=== PATIENT | male | born 1975 | race Caucasian/White ===

== ENCOUNTER 2020-08-31 10:16 | Emergency (ER) | payer SELFPAY ==
[2020-08-31 10:22] VITALS: BP 134/96; PULSE 67; RESP 16; TEMP 36.4; O2SAT 100
--- NOTE | 2020-08-31 10:30 | DI.RAD_ITS ---
Exam(s) XR FOOT LT COMPLETE EXAM: XR FOOT LT COMPLETE CLINICAL HISTORY: crush injury. TECHNIQUE: 2D digital imaging was performed. COMPARISON: No exams were available for comparison FINDINGS: BONES: No acute fracture is present. No bony destructive lesion is seen. Small heel spur. JOINTS: No dislocation present. SOFT TISSUE: Swelling around ankle. IMPRESSION: Unremarkable radiographs of the left foot. DATA REPOSITORY: RADIATION DOSE DELIVERED:
--- NOTE | 2020-08-31 10:30 | DI.RAD_ITS ---
Exam(s) XR ANKLE LT COMPLETE EXAM: XR ANKLE LT COMPLETE CLINICAL HISTORY: crush injury TECHNIQUE: 2D digital imaging was performed. COMPARISON: No exams were available for comparison FINDINGS: BONES: No acute fracture is present. No bony destructive lesion is seen. JOINTS:The ankle mortise is normally aligned. SOFT TISSUE: Lateral soft tissue swelling IMPRESSION: Lateral soft tissue swelling. DATA REPOSITORY: RADIATION DOSE DELIVERED:
--- NOTE | 2020-08-31 11:00 | ED.GENADUL_ITS ---
Discharge Plan Disposition Patient Disposition: HOME Condition: Stable Discharge Details Clinical Impression: Contusion of foot Primary Care Provider: Beltran Prakash ED Provider: Edwin Hayden Home Meds and New Rx's Prescriptions: No Action No Known Home Meds RF: 0 Discharge Instructions Instructions: Foot Contusion (ED) Additional Instructions: [id number] Tylenol and/or Motrin as directed for discomfort. Rest, elevate, cool compresses every 2 hours for 20 minutes. Wound care as we discussed. Please watch for new or worsening symptoms and return to the ER for any concerns. If you are not improving with conservative measures over the next 7-10 days, I recommend following up with orthopedics. Medical Decision Making 45-year-old gentleman presenting for a left foot and ankle injury status post dropping a heavy countertop on his leg yesterday. Reports mild pain across the entire area and an altered sensation across the medial and dorsal aspect of the foot. Patient does have a wound which appears to be healing well. Tetanus status is not up-to-date, will update tetanus status today. Will obtain x-ray of his foot and ankle. Patient declined splinting or crutches. Wound was cleaned and dressed appropriately. X-ray of foot and ankle read by radiology, left foot unremarkable, left ankle r eveals lateral soft tissue swelling. Discussed benign x-rays with patient. The patient had direct blunt trauma-crush injury to his foot-ankle. No evidence of any compartment syndrome, bony abnormality, pain at the proportion to examination. Local altered sensation likely secondary to injury. Discussed importance of resting, elevating, cool compresses, [id number] anti- inflammatories. We also discussed watching for signs of secondary infection from his superficial wound. Patient is comfortable with this plan and has no additional questions or concerns. If he feels as though his symptoms are lingering after a week or so with conservative measures, his plan is to return to orthopedics for further evaluation. He was encouraged to return to the ER for new or worsening symptoms. Standard discharge and return precautions given. Patient has no additional questions or concerns. Medical Records Medical records reviewed: Yes I reviewed the patient's medical records. Imaging Data Radiologic Study: Attestation: I personally reviewed and interpreted this imaging study as follows: Imaging: X-Ray Radiologist's impression: Left foot and ankle, lateral soft tissue swelling, no bony abnormality HPI General Mode of arrival: ambulatory . Date/Time Provider Initiated Documentation: 08/31/20 10:17 . Limitations to Documentation: no limitations . Information obtained by: patient . HPI Narrative: This is a 45-year-old male, denies significant past medical history, presenting for evaluation of a left foot injury. Patient states that yesterday he was working with a heavy countertop, is fell striking him in the anterior aspect of his ankle and the top of the foot. He reports it was significantly more swollen yesterday than it is right now. Reports mild aching-pain at rest, worse with movement or ambulating however he is able to bear weight. He reports that along the dorsal and medial aspect of his foot he has some altered sensation but not true numbness, he is able to feel. He did sustain a wound but denies any drainage or redness. Denies fever. Tetanus status is not up-to-date. Reports that before he was struck in the foot it did hit his right arm, has a bruise, denies pain at the site or any other injuries. Related Data Home Medications Medication Instructions Recorded Confirmed Unknown [No Known Home Meds] 06/05/12 06/05/12 Allergies Allergy/AdvReac Type Severity Reaction Status Date / Time No Known Allergies Allergy Unverified 08/31/20 10:26 General Stated Complaint: Orthopedic GIL: 4 Review of Systems Constitutional Constitutional: Denies fever(s) and Denies weakness Musculoskeletal Musculoskeletal: Denies arthralgias, Denies numbness, Reports stiffness and Reports tingling Integumentary/Breasts Skin/Breast: Denies erythema Neurologic Neurologic: Denies numbness, Reports tingling and Denies weakness [facility] Social History Smoking/Tobacco Use Status: Never Smoking risk assessment performed?: Yes Alcohol Intake: never Drug use: Never Substance use type: does not use Do you feel safe at home: Yes Do you feel safe in your relationship?: Yes Exam Const General: cooperative, healthy appearing, comfortable and no acute distress Orientation: alert and awake [facility] Head: normal to inspection, normocephalic and atraumatic Eyes Conjunctivae: conjunctivae normal Neck Neck: normal visual inspection, trachea midline and supple Resp Effort & Inspection: normal respiratory effort and able to speak in complete sentences Cardio Rate: regular rate Rhythm: regular rhythm Skin General skin exam: no rashes or lesions noted Neuro General: patient alert, patient awake, moves all extremities and no focal motor deficits Cognition: normal cognition Speech: speech normal Gait: antalgic (Slightly) Sensory Exam: no sensory deficits noted and normal double simultaneous stimulation Extrem General: full ROM and capillary refill normal Shoulder/upper arm images: 1. Ecchymosis. Skin is intact Ankle/foot/toe images: 1. Patient has a shallow oval wound, no active bleeding, erythema, warmth, discharge or drainage. No evidence of secondary infection. 2. Diffuse mild ecchymosis, tenderness, swelling. There is no deformity or bony point tenderness. Normal dorsalis pedal pulse and normal capillary refill. Patient able to move all 5 digits. 5/5 dorsi and plantar flexion of the left foot. Other: Patient is able to feel single and double stimulus to the foot, and is able to feel light touch throughout although reports that it feels slightly altered along the medial aspect of his foot and along the dorsal aspect over his first and second metatarsal region. Psych Appearance: grossly normal Mental Status: mental status grossly normal Course Vital Signs Vital signs: Vital Signs Temperature 36.4 C L 08/31/20 10:22 Pulse 67 08/31/20 10:22 Respiratory Rate 16 08/31/20 10:22 Blood Pressure 134/96 H 08/31/20 10:22 Pulse Oximetry 100 08/31/20 10:22 Temperature 36.4 C L 08/31/20 10:22 Temperature Source Temporal Artery Scan 08/31/20 10:22 Pulse 67 08/31/20 10:22 Respiratory Rate 16 08/31/20 10:22 Respiratory Effort Non-Labored 08/31/20 10:26 Blood Pressure 134/96 H 08/31/20 10:22 Blood Pressure Position Sitting 08/31/20 10:22 Pulse Oximetry 100 08/31/20 10:22 Oxygen Delivery Method Room Air 08/31/20 10:22 Oxygen Flow Rate 0 08/31/20 10:22 Pain Level 5 08/31/20 10:22
--- NOTE | 2020-08-31 11:52 | NUR.NOTE ---
Nursing Note: 08/31/20 Cleased open area on l ankle with ns, pat dry, applied bandaid. Reviewed wound care and s/sx of infection with pt. Pt verbalized understanding. Wound 1.5 cm x 0.8 cm x 0.2 cm. No induration or increased warmth noted in periwound.
[2020-08-31 12:04] VITALS: BP 121/96; PULSE 65; RESP 18; TEMP 36.3; O2SAT 98
== END 2020-08-31 12:08 | disposition home or self-care (01) ==
PROVIDERS: Emergency Provider Physician Assistant; PCP Family Medicine
DX: S90.32XA Contusion of left foot, initial encounter (principal); S91.302A Unspecified open wound, left foot, initial encounter; W20.8XXA Other cause of strike by thrown, projected or falling object, initial encounter; Y99.0 Civilian activity done for income or pay
CPT/HCPCS: 90471; 99284; 73610; 73630